=== PATIENT | female | born 1955 | race Caucasian/White ===

== ENCOUNTER 2019-04-03 09:01 | Day surgery (SDC) | payer OTHER ==
[~2019-04-03] VITALS: Ht 147.3 cm; Wt 56.2 kg
[~2019-04-03 09:01] MED LIST: ATOR1TAB19 PO; LISI-538 PO; MULTCAP PO; NS 1,000 ML IV ONE; QC F0.52 PO; VITA100066 PO
[2019-04-03] MEDS ORDERED: propofoL 200 MG/20 ML VIAL As Ordered ONE ×2 (09:50→10:21)
--- NOTE | 2019-04-03 10:27 | ROOR ---
Patient Name: Beatrice Smith Procedure Date: 04/03/2019 9:48 AM Date of : 1955 Age: 64 Room: [facility] Gender: Female Note Status: Finalized Procedure: Total Colonoscopy to Cecum + Cold Snare Polypectomy + Hemoclips Indications: Screening for colorectal malignant neoplasm Providers: Marcus Serna MD Referring MD: Abraham Carvajal DO Requesting Provider: Medicines: Monitored Anesthesia Care Complications: No immediate complications. Procedure: Pre-Anesthesia Assessment: - The heart rate, respiratory rate, oxygen saturations, blood pressure, adequacy of pulmonary ventilation, and response to care were monitored throughout the procedure. The Colonoscope was introduced through the anus and advanced to the cecum, identified by appendiceal orifice and ileocecal valve. The Colonoscope was introduced through the anus and advanced to the cecum, identified by appendiceal orifice and ileocecal valve. The colonoscopy was performed without difficulty. The patient tolerated the procedure well. The quality of the bowel preparation was excellent. Findings: The perianal and digital rectal examinations were normal. Non-bleeding internal hemorrhoids were found during retroflexion. The hemorrhoids were small and Grade I (internal hemorrhoids that do not prolapse). Multiple small and large-mouthed diverticula were found in the recto-sigmoid colon, sigmoid colon and descending colon. A small polyp was found in the cecum. The polyp was sessile. The polyp was removed with a jumbo cold forceps. Resection and retrieval were complete. A small polyp was found at 50 cm proximal to the anus. The polyp was sessile. The polyp was removed with a jumbo cold forceps. Resection and retrieval were complete. A small polyp was found at 30 cm proximal to the anus. The polyp was semi-pedunculated. The polyp was removed with a cold snare. Resection and retrieval were complete. To prevent bleeding after the polypectomy, one hemostatic clip was successfully placed (MR conditional). There was no bleeding at the end of the procedure. The exam was otherwise without abnormality on direct and retroflexion views. Impression: - Non-bleeding internal hemorrhoids. - Diverticulosis in the recto-sigmoid colon, in the sigmoid colon and in the descending colon. - One small polyp in the cecum, removed with a jumbo cold forceps. Resected and retrieved. - One small polyp at 50 cm proximal to the anus, removed with a jumbo cold forceps. Resected and retrieved. - One small polyp at 30 cm proximal to the anus, removed with a cold snare. Resected and retrieved. Clip (MR conditional) was placed. - The examination was otherwise normal on direct and retroflexion views. - The exam was otherwise normal to the cecum. Recommendation: - Patient has a contact number available for emergencies. The signs and symptoms of potential delayed complications were discussed with the patient. Return to normal activities tomorrow. Written discharge instructions were provided to the patient. - High fiber diet. - Discharge patient to home. - Continue present medications. - Await pathology results. - Repeat colonoscopy in 5 years for surveillance based on pathology results. - Return to referring physician. - The findings and recommendations were discussed with the patient's family. Marcus Serna MD Marcus Serna MD 04/03/2019 10:27:06 AM Electronically signed by Marcus Serna MD Number of Addenda: 0 Note Initiated On: 04/03/2019 9:48 AM Estimated Blood Loss: Estimated blood loss: none.
[2019-04-03] MEDS ORDERED: ONDANSETRON 4MG/2ML VIAL (J2405) As Ordered ONE (11:16)
[2019-04-03 11:43] VITALS: BP 168/88
[2019-04-03] MEDS ORDERED: ONDANSETRON 4MG/2ML VIAL (J2405) IV ONE (12:00)
== END 2019-04-03 11:50 | disposition home or self-care (01) ==
LOC: M OPP 09:01
PROVIDERS: ATTEND Internal Medicine Gastroenterology
DX: Z12.11 Encounter for screening for malignant neoplasm of colon (principal); K64.0 First degree hemorrhoids; D12.6 Benign neoplasm of colon, unspecified; D12.0 Benign neoplasm of cecum; K57.30 Diverticulosis of large intestine without perforation or abscess without bleeding; Z79.899 Other long term (current) drug therapy; Z88.8 Allergy status to other drugs, medicaments and biological substances

== ENCOUNTER 2019-06-02 17:13 | Emergency (ER) | payer OTHER ==
[~2019-06-02] VITALS: Ht 147.3 cm; Wt 55.4 kg
[~2019-06-02 17:13] MED LIST changes: -NS 1,000 ML IV ONE
[2019-06-02] MEDS ORDERED: NS 1,000 ML IV SCH (17:21)
[2019-06-02] MEDS ORDERED: LISI20TA20 PO (17:22)
[2019-06-02] MEDS ORDERED: ONDANSETRON 4MG/2ML VIAL (J2405) IV ONE (17:45)
[2019-06-02] MEDS ORDERED: KETOROLAC 30 MG/ML VIAL (J1885) IV ONE (17:45)
[2019-06-02 18:26] LABS: BASO % 0.2 % (0.0-1.0); EOS % 0.2 % (0.0-3.0); HEMATOCRIT 40.3 % (36.0-47.0); HEMOGLOBIN 13.3 g/dl (12.0-15.5); LYMPH # 2.6 10^3/uL (1.5-5.0); LYMPH % 21.3 % (24.0-44.0); MEAN CORPUSCULAR HEMOGLOBIN 29.3 pg (27.0-33.0); MEAN CORPUSCULAR VOLUME 88.8 fl (80.0-96.0); MONO # 0.9 10^3/uL (0.0-0.8); MONO % 7.3 % (0.0-5.0); NEUTROPHILS # 8.6 10^3/uL (1.5-8.5); NEUTROPHILS % 70.4 % (36.0-66.0); PLATELET COUNT, AUTOMATED 824 10^3/uL (150-450); RED BLOOD COUNT 4.54 10^6/uL (4.00-5.40); WHITE BLOOD COUNT 12.2 10^3/uL (4.0-10.0)
[2019-06-02] MEDS ORDERED: ISOVUE-370 76% 100ML VIAL (Q9967) As Ordered ONE (18:39)
[2019-06-02 18:50] LABS: ALBUMIN 3.4 GM/DL (3.2-5.2); BILIRUBIN,DIRECT 0.2 MG/DL (0.0-0.2); BILIRUBIN,TOTAL 0.5 MG/DL (0.2-1.0); TOTAL PROTEIN 8.4 GM/DL (6.4-8.2)
--- NOTE | 2019-06-02 20:27 | REPVR ---
PROCEDURE INFORMATION: Exam: CT Abdomen And Pelvis With Contrast Exam date and time: 06/02/2019 6:50 PM Age: 64 years old Clinical indication: Abdominal pain; Localized; Left lower quadrant (llq); Additional info: Llq pain TECHNIQUE: Imaging protocol: Computed tomography of the abdomen and pelvis with intravenous contrast. Radiation optimization: All CT scans at this facility use at least one of these dose optimization techniques: automated exposure control; mA and/or kV adjustment per patient size (includes targeted exams where dose is matched to clinical indication); or iterative reconstruction. Contrast material: ISOVUE 370; Contrast volume: 100 ml; Contrast route: IV; COMPARISON: No relevant prior studies available. FINDINGS: Lungs: No lesions of the lung bases. Mediastinum: There is a hiatal hernia. Liver: There are no focal liver lesions present. Gallbladder and bile ducts: The gallbladder is normal. Pancreas: Normal. No ductal dilation. Spleen: The spleen is normal. Adrenals: The adrenal glands are normal. Kidneys and ureters: The kidneys are normal. Stomach and bowel: There is no small bowel dilatation however there is dilatation of the entire colon which is distended with fluid. There is inflammation surrounding the distal descending colon and sigmoid. Appendix: No evidence of appendicitis. Intraperitoneal space: Ascites. Vasculature: There is no evidence of an abdominal aortic aneurysm. The vasculature demonstrates diffuse mild atherosclerotic calcification. Lymph nodes: Subcentimeter mesenteric lymph nodes. Bladder: The bladder is unremarkable. Reproductive: Unremarkable as visualized. Bones/joints: Unremarkable. No acute fracture. Soft tissues: Unremarkable. IMPRESSION: There is distension of the colon which is fluid filled to the distal descending where there is marked wall thickening of the sigmoid colon which may be due to long segment colitis but could also be due to an infiltrative process such as lymphoma or carcinoma. Transition point is seen on series 202, image 39. Ascites is seen in the pelvis. Electronically signed by: Aida Ch On 06/02/2019 20:27:08 PM
[2019-06-02] MEDS ORDERED: FLAG500T PO (20:42)
[2019-06-02] MEDS ORDERED: ONDA4TAB6 PO (20:42)
[2019-06-02] MEDS ORDERED: CIPR-249 PO (20:42)
[2019-06-02] MEDS ORDERED: CIPROFLOXACIN 500 MG TAB PO ONE (20:45)
[2019-06-02] MEDS ORDERED: metroNIDAZOLE (FLAGYL) 500 MG TAB PO ONE (20:45)
[2019-06-02 21:07] VITALS: BP 134/73
--- NOTE | 2019-06-04 18:35 | ED PDOC ---
Post-Departure Follow-Up ct abd/p faxed to sae rajput and dr garner for fu Wesley Burger MD Jun 04, 2019 18:35
== END 2019-06-02 21:00 | disposition home or self-care (01) ==
LOC: M ED 17:13
DX: K51.90 Ulcerative colitis, unspecified, without complications (principal); R10.32 Left lower quadrant pain; K21.9 Gastro-esophageal reflux disease without esophagitis; K57.90 Diverticulosis of intestine, part unspecified, without perforation or abscess without bleeding; F17.218 Nicotine dependence, cigarettes, with other nicotine-induced disorders
CPT/HCPCS: 36415; 74177; 80047; 80076; 83690; 85025; 96361; 96374; 96375; 99284; J1885; J2405; Q9967

== ENCOUNTER 2022-10-28 10:02 | Day surgery (SDC) | payer MEDICARE ==
[~2022-10-28] VITALS: Ht 149.9 cm; Wt 61.5 kg
[~2022-10-28 10:02] MED LIST changes: +CIPR-249 PO; +FLAG500T PO; -LISI-538 PO; +LISI20TA33 PO; +LISI20TA37 PO; +LISI40TA4 PO; +NS 1,000 ML IV ONE; +ONDA4TAB6 PO; +PANT20TA6 PO; +VITA100093 PO
[2022-10-28 12:12] VITALS: TEMP 97.3
[2022-10-28 13:15] VITALS: BP 206/113; O2SAT 97
[2022-10-28] MEDS ORDERED: ONDANSETRON 4MG 2ML VIAL IV ONE (14:10)
== END 2022-10-28 14:47 | disposition home or self-care (01) ==
LOC: M OPP 10:02
PROVIDERS: ATTEND Internal Medicine Gastroenterology
DX: Z86.010 Personal history of colon polyps (principal); K64.0 First degree hemorrhoids; K56.699 Other intestinal obstruction unspecified as to partial versus complete obstruction; K57.30 Diverticulosis of large intestine without perforation or abscess without bleeding; Z79.02 Long term (current) use of antithrombotics/antiplatelets; Z79.899 Other long term (current) drug therapy; Z88.5 Allergy status to narcotic agent
CPT/HCPCS: 45380; 71045; 74019; 88305; J2405

== ENCOUNTER → 2023-01-25 | Outpatient (CLI) | payer MEDICARE, MEDICAID ==
[~2023-01-25] MED LIST changes: +LIQUID POLIBAR PLUS 105% w/v 750ML BTL As Ordered ONE; -NS 1,000 ML IV ONE
== END ==
LOC: M RAD 09:19
PROVIDERS: ATTEND Surgery
DX: K56.699 Other intestinal obstruction unspecified as to partial versus complete obstruction (principal)